=== PATIENT | female | born 1995 | race African-American/Black ===

== ENCOUNTER 2017-03-30 14:46 | Emergency (ER) | payer BC, OTHER ==
[~2017-03-30] VITALS: Ht 160 cm; Wt 60.0 kg
[~2017-03-30 14:46] MED LIST: EPP3/2 IM; HYDR-3785 PO
[2017-03-30 14:49] VITALS: TEMP 36.7; Ht 160 cm; Wt 60.0 kg
[2017-03-30] MEDS ORDERED: SODIUM CHLORIDE 0.9% 1000ML 2,000 ML IV STA (15:19)
[2017-03-30] MEDS ORDERED: ONDANSETRON INJ 2 MG/ML 2 ML VIAL IV STA (15:19)
--- NOTE | 2017-03-30 15:19 | EMERGENCY ROOM VISIT NOTE ---
History Report prepared by Dennise: Cari Young Under the Supervision of: Dr. Klever Michel D.O. First contact with patient: 14:51 Chief Complaint: NAUSEA Stated Complaint: SEVERE MORNING SICKNESS, NAUSEA History of Present Illness The patient is a 22 year old female who presents to the Emergency Room with complaints of severe nausea starting about 2 weeks ago and worsening about 2 days ago. She has had at least 7 vomiting episodes today. She has been taking Zofran with some relief. She also complains of lower abdominal pain occurring for the past 2 weeks which has worsened in severity but the location has not changed. She also reports back pain occurring with moving, twisting, turning, and bending. The patient is currently 7.5 weeks . She had an ultrasound at [facility] in [place] which showed intrauterine . Gravid 2/ Para 0/ 1. She is visiting [employer] Pt denies headache, change in vision, fevers, chest pain, shortness of breath, diarrhea, pain with urination, melena, and vaginal bleeding/discharge. Her last bowel movement was about 3 days ago. She does not have any medical problems. She denies any history of cholecystectomy or appendectomy. She is not taking a vitamin. Source of History: patient Onset: about 2 weeks ago Position: other (global) Symptom Intensity: severe Quality: other (nausea ) Timing: worsening Modifying Factors (Relieving): other (Zofran with some relief) Associated Symptoms: + vomiting, + abdominal pain, + back pain, No fevers, No headache, No chest pain, No SOB, No diarrhea Review of Systems See HPI for pertinent positives & negatives. A total of 10 systems reviewed and were otherwise negative. Past Medical & Surgical Medical Problems: (1) Asthma Family History Patient reports no known family medical history. Social History Marital Status: in relationship Occupation Status: unemployed Current/Historical Medications Scheduled Epinephrine (Epipen), 0.3 MG IM UD Hydroxyzine Hcl (Atarax), 100 MG PO DAILY Ondansetron Hcl (Zofran), 4 MG PO Q8H Allergies Coded Allergies: Egg (Verified Allergy, Severe, ANAPHYLAXIS, 08/29/13) NUTS (Verified Allergy, Severe, ANAPHYLAXIS, 03/30/17) Nut Tree (Unverified Allergy, Unknown, anaphylaxis, 03/30/17) Soy Protein (Verified Allergy, Unknown, ANAPHYLAXIS, 03/30/17) Falls Seed (Unverified Allergy, Unknown, UNKNOWN, 03/30/17) Soy Allergy (Verified Adverse Reaction, Severe, ANAPHYLAXIS, 03/30/17) Uncoded Allergies: FLAX SEED (Allergy, Unknown, UNKNOWN, 03/30/17) Physical Exam Vital Signs Date Time Temp Pulse Resp B/P (MAP) Pulse Ox O2 Delivery O2 Flow Rate FiO2 03/30/17 18:42 108 18 114/61 100 03/30/17 17:05 80 18 113/70 100 Room Air 03/30/17 14:49 36.7 93 16 109/104 100 Room Air Physical Exam GENERAL: Sitting up in bed, no acute distress, non-toxic EYE EXAM: normal conjunctiva, PERRL and EOM's grossly intact OROPHARYNX: no exudate, no erythema, lips, buccal mucosa, and tongue normal and mucous membranes are moist NECK: supple, no nuchal rigidity, no adenopathy, non-tender LUNGS: Clear to auscultation. Normal chest wall mechanics HEART: no murmurs, S1 normal and S2 normal ABDOMEN: abdomen soft, non-tender, normo-active bowel sounds, no masses, no rebound or guarding. BACK: Back is symmetrical on inspection and there is no deformity, no midline tenderness, no CVA tenderness. SKIN: no rashes and no bruising UPPER EXTREMITIES: upper extremities are grossly normal. LOWER EXTREMITIES: No pitting edema. NEURO EXAM: Normal sensorium, cranial nerves II-XII grossly intact, normal speech, no gross weakness of arms, no gross weakness of legs. Medical Decision & Procedures ER Provider Diagnostic Interpretation: US results from [facility] in [place]: OB 1ST TRI TA TV US IMPRESSION: 1. Single live intrauterine fetus with crown-rump length consistent with 6 w 0 d. The DI based on this ultrasound is 11/14/2017. The fetus is dated 6 w 1 d from patients clinical DI of 11/13/2017, with sonographic size appropriate for dates. READ BY: Ziyad Arauz Laboratory Results 03/30/17 15:28 Red Blood Count 4.27, Mean Corpuscular Volume 91.8, Mean Corpuscular Hemoglobin 30.7, Mean Corpuscular Hemoglobin Concent 33.4, Mean Platelet Volume 11.2, Neutrophils (%) (Auto) 84.1, Lymphocytes (%) (Auto) 9.8, Monocytes (%) (Auto) 5.4, Eosinophils (%) (Auto) 0.3, Basophils (%) (Auto) 0.2, Neutrophils # (Auto) 9.11, Lymphocytes # (Auto) 1.06, Monocytes # (Auto) 0.58, Eosinophils # (Auto) 0.03, Basophils # (Auto) 0.02 03/30/17 15:28 03/30/17 17:03 Test 03/30/17 15:28 03/30/17 17:03 White Blood Count 10.82 K/uL (4.8-10.8) Red Blood Count 4.27 M/uL (4.2-5.4) Hemoglobin 13.1 g/dL (12.0-16.0) Hematocrit 39.2 % (37-47) Mean Corpuscular Volume 91.8 fL (80-100) Mean Corpuscular Hemoglobin 30.7 pg (25-34) Mean Corpuscular Hemoglobin Concent 33.4 g/dl (32-36) Platelet Count 218 K/uL (130-400) Mean Platelet Volume 11.2 fL (7.4-10.4) Neutrophils (%) (Auto) 84.1 % Lymphocytes (%) (Auto) 9.8 % Monocytes (%) (Auto) 5.4 % Eosinophils (%) (Auto) 0.3 % Basophils (%) (Auto) 0.2 % Neutrophils # (Auto) 9.11 K/uL (1.4-6.5) Lymphocytes # (Auto) 1.06 K/uL (1.2-3.4) Monocytes # (Auto) 0.58 K/uL (0.11-0.59) Eosinophils # (Auto) 0.03 K/uL (0-0.5) Basophils # (Auto) 0.02 K/uL (0-0.2) RDW Standard Deviation 45.3 fL (36.4-46.3) RDW Coefficient of Variation 13.4 % (11.5-14.5) Immature Granulocyte % (Auto) 0.2 % Immature Granulocyte # (Auto) 0.02 K/uL (0.00-0.02) Anion Gap 12.0 mmol/L (3-11) Est Creatinine Clear Calc Drug Dose 103.1 ml/min Estimated GFR () 139.7 Estimated GFR (Non- 120.6 BUN/Creatinine Ratio 14.7 (10-20) Calcium Level 9.3 mg/dl (8.5-10.1) Total Bilirubin 0.7 mg/dl (0.2-1) Alanine Aminotransferase (ALT/SGPT) 20 U/L (12-78) Alkaline Phosphatase 66 U/L (45-117) Total Protein 8.4 gm/dl (6.4-8.2) Albumin 4.2 gm/dl (3.4-5.0) Lipase 65 U/L (73-393) Human Chorionic Gonadotropin, Quant [id number] mIU/mL Direct Bilirubin < 0.1 mg/dl (0-0.2) Aspartate Amino Transf (AST/SGOT) 11 U/L (15-37) Laboratory results per my review. Medications Administered Medications (Trade) Dose Ordered Sig/Lenora Route Start Time Stop Time Status Last Admin Dose Admin Sodium Chloride 2,000 ml @ 999 mls/hr Q2H1M STAT IV 03/30/17 15:19 03/30/17 17:19 DC 03/30/17 15:32 999 MLS/HR Ondansetron HCl (Zofran Inj) 4 mg NOW STAT IV 03/30/17 15:19 03/30/17 15:20 DC 03/30/17 15:34 4 MG Procedure Bedside ultrasound showed IUP with a heart rate of 160. ED Course ED COURSE: Vital signs were reviewed and showed normal. The patients medical record was reviewed The above diagnostic studies were performed and reviewed. ED treatments and interventions as stated above. 1451: The patient was evaluated in room A10. A complete history and physical examination was performed. Blood pressure screening: Patient was found to have normal blood pressure on screening and does not require follow-up. Medication Reconciliation: I attest that I have personally reviewed the patient' s current medication list. 1519: Zofran Inj 4 mg IV, Sodium Chloride 2000 ml @ 999 mls/hr IV 1824: Upon reevaluation, the patient is resting comfortably and tolerating liquids.I discussed my findings with the patient and she understands and agrees with the treatment plan. Based on the patients age, coexisting illnesses, exam and lab findings the decision to treat as an outpatient was made. The patient remained stable while under my care. The patient appeared well at the time of discharge. Medical Decision Differential diagnoses includes but is not limited to gastritis, peptic ulcer disease, GERD, gallbladder disease, pancreatitis, small bowel obstruction, acute coronary syndrome, pericarditis, ischemic bowel, irritable bowel disease, irritable bowel syndrome, appendicitis, diverticulitis, malignancy, hernia, urinary tract infection, torsion, /ectopic , perforation, trauma, infectious. Patient is a 22-year-old female that presents the ER for nausea. Patient notes that she is about 7 1/2 weeks with an IUP confirmed bowel sound in [place]. She notes that she was doing well until 2 days ago when she ran Zofran. She has not had any care. She does not take any vitamins. Abdominal exam was benign. Bedside of sensory is an IUP with heart rate of 160. CBC along with BMP, LFTs, bilirubin and lipase was unremarkable. Beta hCG was 13,000. Patient was given IV fluids and Zofran. She was able to eat without difficulty. She notes that she feels significantly better. She is discharged to follow-up with obstetrics in [place] as she is leaving here today. She is given a prescription of Zofran and I stressed the importance of taking a vitamin. Discussed with Pt concerning signs and symptoms to watch out for. Pt was instructed to follow up with their PCP and discussed with the patient their option to return to the ED at anytime for persistent or worsening symptoms. The appropriate anticipatory guidance and out- patient management, including indications for return to the emergency department , were explained at length to the patient and understood. Impression Primary Impression: Hyperemesis gravidarum Additional Impression: IUP (intrauterine ), incidental Scribe Attestation The scribe's documentation has been prepared under my direction and personally reviewed by me in its entirety. I confirm that the note above accurately reflects all work, treatment, procedures, and medical decision making performed by me. Departure Information Dispostion Home / Self-Care Prescriptions Ondansetron Hcl (ZOFRAN) 4 Mg Tab 4 MG PO Q8H for nausea, #30 TAB Prov: Klever Michel, DO 03/30/17 Referrals No Doctor, Assigned (PCP) Forms HOME CARE DOCUMENTATION FORM, IMPORTANT VISIT INFORMATION Patient Instructions ED Preg Morning Sickness, Hyperemesis, My [facility] Additional Instructions Please follow up with your primary care doctor with in the next 24 hours. Any worsening of your symptoms, please return to the ED immediately. This includes fevers greater than 100.4, abdominal pain, persistent nausea/vomiting, vaginal bleeding, vaginal discharge, or any other concerning signs or symptoms from your standpoint. Please start taking a vitamin immediately. You must follow up with your project portfolio analyst/obstetrics doctor immediately. Problem Qualifiers
[2017-03-30 15:43] LABS: BASO % 0.2 %; BASO ABS # 0.02 K/uL (0-0.2); COMPLETE YES; EOS % 0.3 %; HEMATOCRIT 39.2 % (37-47); IG% 0.2 %; LYMPH % 9.8 %; LYMPH ABS # 1.06 K/uL (1.2-3.4); MEAN CELL VOLUME 91.8 fL (80-100); MEAN CORPUSCULAR HEMOGLOBIN 30.7 pg (25-34); MEAN CORPUSCULAR HGB CONC 33.4 g/dl (32-36); MEAN PLATELET VOLUME 11.2 fL (7.4-10.4); MONO % 5.4 %; NEUT % 84.1 %; PLATELET COUNT 218 K/uL (130-400); RED BLOOD COUNT 4.27 M/uL (4.2-5.4); WHITE BLOOD COUNT 10.82 K/uL (4.8-10.8)
[2017-03-30 16:41] LABS: ALKALINE PHOSPHATASE 66 U/L (45-117); ALT/SGPT 20 U/L (12-78); BLOOD UREA NITROGEN 11 mg/dl (7-18); BUN/CREATININE RATIO 14.7 (10-20); CALCIUM 9.3 mg/dl (8.5-10.1); CARBON DIOXIDE 21 mmol/L (21-32); CHLORIDE 105 mmol/L (98-107); CREATININE 0.72 mg/dl (0.60-1.20); GLUCOSE 73 mg/dl (70-99); SODIUM 138 mmol/L (136-145)
[2017-03-30 17:25] LABS: POTASSIUM 3.5 mmol/L (3.5-5.1)
[2017-03-30 17:30] LABS: AST/SGOT 11 U/L (15-37)
[2017-03-30] MEDS ORDERED: ONDA4TAB65 PO (18:26)
[2017-03-30 18:42] VITALS: BP 114/61; PULSE 108; O2SAT 100
== END 2017-03-30 18:43 | disposition home or self-care (01) ==
LOC: C.EDB 14:48 → C.EDA 18:43
DX: O21.0 Mild hyperemesis gravidarum (principal); Z3A.01 Less than 8 weeks gestation of pregnancy; J45.909 Unspecified asthma, uncomplicated; Z91.018 Allergy to other foods